=== PATIENT | male | born 1940 | race Caucasian/White ===

== ENCOUNTER 2024-08-08 17:54 | Outpatient (CLI) | payer OTHER, SELFPAY ==
--- NOTE | ~2024-08-08 | CT_ITS ---
Clinical indication:Shortness of breath and cough COMPARISON:None. No prior radiographs were performed. No prior cross-sectional imaging was performed at our institution. TECHNIQUE: Multiple contiguous axial images of the chest were performed without the administration of intravenous contrast. FINDINGS: Large right and small left-sided pleural effusions are identified with adjacent compressive atelectas is. Patchy groundglass opacification with a bilateral upper lobe distribution. Interstitial thickening is detected throughout the bilateral lung [place]. The heart is enlarged, with a small pericardial effusion. IMPRESSION: Findings consistent with chronic interstitial lung disease with a large right and small left-sided pl eural effusions Reviewed, dictated and finalized at location A. ION CHIEF IMPRESSION: Findings consistent with chronic interstitial lung disease with a large right a nd small left-sided pleural effusions
--- OUTSIDE RECORDS SUMMARY | 2024-08-08 18:01 | XMS_ITS | Clinical Summary ---
Author Organization [facility] Address [facility] [place] [address] Care Team Providers Care Phys Asst Name Role Phone Radha Harvey MD Primary Care Provider [phone] Allergies No known active allergies Medications amLODIPine (NORVASC) 5 MG tablet Take 1 tablet by mouth daily. 06/10/2022 Active ELIQUIS 5 MG tablet Take 5 mg by mouth 2 (two) times daily. 08/07/2022 Active metFORMIN (GLUCOPHAGE) 500 MG tablet Take 500 mg by mouth 2 (two) times daily. 06/20/2022 Active atorvastatin (LIPITOR) 40 MG tablet Take 1 tablet by mouth daily. 07/03/2022 Active tamsulosin (FLOMAX) 0.4 MG Cap Take 2 capsules by mouth daily. 06/26/2022 Active magnesium carbonate (MAGONATE) oral liquid Take 5 mLs by mouth 4 (four) times daily. Active fish oil (OMEGA-3 FATTY ACID) 1000 MG Cap capsule Take 1,000 mg by mouth 2 (two) times daily. Active Cyanocobalamin (B-12) 50 MCG Tab Active Active Problems No known active problems Social History Tobacco Use Types Packs/Day Years Used Date Smoking Tobacco: Never Smokeless Tobacco: Never Alcohol Use Standard Drinks/Week Comments Yes 11.7 (1 standard drink = 0.6 oz pure alcohol) Sex and Gender Information Value Date Recorded Sex Assigned at Not on file Legal Sex Male 9:50 PM CDT Gender Identity Not on file Sexual Orientation Not on file Last Filed Vital Signs Vital Sign Reading Time Taken Comments Blood Pressure - - Pulse - - Temperature - - Respiratory Rate - - Oxygen Saturation - - Inhaled Oxygen Concentration - - Weight 74.4 kg (164 lb) 11/23/2022 9:52 AM CDT Height 177.8 cm (5' 10 ) 11/23/2022 9:52 AM CDT Body Mass Index 23.53 11/23/2022 9:52 AM CDT Plan of Treatment Health Maintenance Due Date Last Done Comments DTaP, Tdap and Td Vaccines ( 1 - Tdap) 1959 Zoster Vaccines (1 of 2) 1990 Annual Medicare Wellness Visit 2005 Pneumococcal Vaccine: 65+ Ye ars (1 of 1 - PCV) 2005 RSV Immunization or 60+ Years (1 - 1-dose 75+ series) 2015 COVID-19 Vaccine ( - 2023-2 5 season) 2024 Influenza Adult (#1) 2024 Meningococcal B Vaccine Aged Out No l onger eligible based on patient's age to complete this topic Meningococcal Vaccine Aged Out No mara booker eligible based on patient's age to complete this topic RSV Immunizations Under 20 Months Aged Out No longer eligible based on patient's age to complete this topic Insurance [employer] Care Teams Phys Asst Relationship Specialty [place] [address] [place] [address] PCP - General INTERNAL MEDICINE 10/10/18
== END 2024-08-08 17:55 | disposition home or self-care (01) ==
PROVIDERS: PCP Internal Medicine
DX: R06.02 Shortness of breath (principal); R91.8 Other nonspecific abnormal finding of lung field
CPT/HCPCS: 71250